=== PATIENT | female | born 1975 | race Two or more races ===

== ENCOUNTER 2018-09-07 22:11 | Emergency (ER) | payer OTHER ==
[~2018-09-07] VITALS: Ht 160 cm; Wt 63.5 kg
[~2018-09-07 22:11] MED LIST: ANTIVERT25 M1 PO
[2018-09-07] MEDS ORDERED: CORGARD20 M1 (23:24)
[2018-09-08] MEDS ORDERED: TRANSDERM-SCOP1 EACH TOP (06:00)
[2018-09-08] MEDS ORDERED: PROMETHAZINE HC25 MG PO (06:00)
== END 2018-09-08 06:44 | disposition home or self-care (01) ==
LOC: ER 22:11
DX: H81.13 Benign paroxysmal vertigo, bilateral (principal)